=== PATIENT | female | born 1960 | race Caucasian/White ===

== ENCOUNTER 2018-12-04 17:26 | Emergency (ER) | payer MEDICARE, OTHER ==
[~2018-12-04] VITALS: Ht 162.6 cm; Wt 72.7 kg
[2018-12-04 17:34] VITALS: Ht 162.6 cm; Wt 72.7 kg
[2018-12-04] MEDS ORDERED: SOD CHLORIDE 0.9% 1,000 ML IV STA (17:36)
--- NOTE | 2018-12-04 19:27 | ERD ---
ER Documentation Chief Complaint Chief Complaint SUDDEN ONSET DIZZINESS, PALPITATIONS, SOB - SVT CONVERTED EN ROUTE HPI Patient is a 58-year-old female with Parkinson's disease and SVT who presents with SVT. She was brought in by ambulance. She said that she had a rapid heart rate which lasted greater than 1 hour. She said that her heart rate was over 200. She was given 6 mg of adenosine by paramedics and her heart rate converted to a normal rhythm. The patient feels fine now. She says that her primary doctor is at [facility]. The patient does not have a cane loader. ROS All systems reviewed and are negative except as per history of present illness. Medications Home Meds Unable to Obtain Active Prescriptions or Reported Meds Allergies Allergies: Coded Allergies: armodafinil (Verified Allergy, Unknown, 12/04/18) PMhx/Soc Hx Neurological Disorder: Yes (PARKINSON'S W/ STIMULATORS IN BILATERAL UE) Hx Cardiac Disorders: Yes (SVT) Hx Alcohol Use: No Hx Substance Use: No Hx Tobacco Use: No Smoking Status: Never smoker FmHx Family History: diabetes Physical Exam Vitals Vital Signs Date Temp Pulse Resp B/P (MAP) Pulse Ox O2 O2 Flow FiO2 Time Delivery Rate 12/04/18 74 17 146/89 100 Room Air 19:40 (108) 12/04/18 80 18 107/72 99 Room Air 18:30 (84) 12/04/18 98.6 79 16 132/84 98 17:34 (100) Physical Exam Const: No acute distress Head: Atraumatic Eyes: Normal Conjunctiva ENT: Normal External Ears, Nose and Mouth. Neck: Full range of motion. No meningismus. Resp: Clear to auscultation bilaterally Cardio: Regular rate and rhythm, no murmurs Abd: Soft, non tender, non distended. Normal bowel sounds Skin: No petechiae or rashes Back: No midline or flank tenderness Ext: No cyanosis, or edema Neur: Awake and alert Psych: Normal Mood and Affect Result Diagram: 12/04/18180612/04/181806 Results 24 hrs Laboratory Tests Test 12/04/18 18:07 White Blood Count 7.0 10^3/ul Red Blood Count 4.44 10^6/ul Hemoglobin 12.8 g/dl Hematocrit 39.8 % Mean Corpuscular Volume 89.6 fl Mean Corpuscular Hemoglobin 28.8 pg Mean Corpuscular Hemoglobin Concent 32.2 g/dl Red Cell Distribution Width 12.1 % Platelet Count 115 10^3/UL Mean Platelet Volume 11.5 fl Immature Granulocytes % 0.300 % Neutrophils % 66.9 % Lymphocytes % 23.3 % Monocytes % 7.9 % Eosinophils % 1.3 % Basophils % 0.3 % Nucleated Red Blood Cells % 0.0 /100WBC Immature Granulocytes # 0.020 10^3/ul Neutrophils # 4.7 10^3/ul Lymphocytes # 1.6 10^3/ul Monocytes # 0.6 10^3/ul Eosinophils # 0.1 10^3/ul Basophils # 0.0 10^3/ul Nucleated Red Blood Cells # 0.0 10^3/ul Sodium Level 141 mmol/L Potassium Level 4.0 mmol/L Chloride Level 108 mmol/L Carbon Dioxide Level 22 mmol/L Anion Gap 11 Blood Urea Nitrogen 20 mg/dl Creatinine 0.75 mg/dl Est Glomerular Filtrat Rate mL/min > 60 mL/min Glucose Level 104 mg/dl Calcium Level 9.0 mg/dl Magnesium Level 2.1 mg/dl Troponin I 0.022 ng/ml Thyroid Stimulating Hormone (TSH) 0.457 MIU/L Free Thyroxine 0.86 ng/dl Current Medications Medications Dose Sig/Lynnette Start Time Status Last (Trade) Ordered Route PRN Stop Time Admin Dose Reason Admin Sodium 1,000 ml @ Q1H STAT 12/04/18 DC 12/04/18 Chloride 1,000 mls/hr IV 17:36 18:14 12/04/18 18:35 Procedures/MDM EKG read by me: Rate/Rhythm: Regular rate and rhythm at a rate of 78 Intervals: Normal Impression: No evidence of ischemia or arrhythmia Patient is a 58-year-old female who presents with SVT. Adenosine was given by paramedics and patient is still in a normal sinus rhythm. Laboratory studies were basically normal. The patient will be discharged and should follow-up with her primary doctor within 1-2 days. She can return for any worsening symptoms. I believe outpatient management is appropriate at this time. Departure Diagnosis: Primary Impression: SVT (supraventricular tachycardia) Condition: Fair Patient Instructions: SVT Referrals: Your doctor Additional Instructions: Call your primary care doctor TOMORROW for an appointment during the next 1 WEEK.Tell the board layer that you were referred from this facility.See the doctor sooner or return here if your condition worsens before your appointment time. KIRAN JEAN-BAPTISTE MD Dec 04, 2018 19:27
[2018-12-04 20:35] VITALS: BP 127/78; PULSE 82; RESP 20
== END 2018-12-04 20:40 | disposition home or self-care (01) ==
LOC: E/R 17:26
DX: I47.1 Supraventricular tachycardia (principal)
CPT/HCPCS: 36415; 71045; 80048; 83735; 84439; 84443; 84484; 85025; 93005; 96360; 99285; J7030